=== PATIENT | male | born 1980 | race Asian ===

== ENCOUNTER 2024-07-30 06:17 | Day surgery (SDC) | payer OTHER, SELFPAY ==
[2024-07-30 07:05] LABS: Glucose - Point of Care 89 mg/dl (70-99)
== END 2024-07-30 08:28 | disposition home or self-care (01) ==
LOC: GI 06:17
PROVIDERS: ATTENDING PHYSICIAN Internal Medicine Gastroenterology
DX: Z12.11 Encounter for screening for malignant neoplasm of colon (principal); K64.8 Other hemorrhoids
CPT/HCPCS: G0121; 82962